=== PATIENT | female | born 1945 ===

== ENCOUNTER → 2018-03-26 | Outpatient (REF) ==
[2018-03-26 16:27] LABS: IRON,SERUM 68 ug/dL (35-150)
[2018-03-26 16:36] LABS: TOTAL IRON BINDING CAPACITY 323 ug/dL (265-497)
[2018-03-26 17:03] LABS: FERRITIN 98 ng/mL (11-264)
== END ==
LOC: ZLAB.WCH 16:17
PROVIDERS: Internal Medicine
DX: Z01.89 Encounter for other specified special examinations (principal)